=== PATIENT | male | born 1995 | race Caucasian/White ===

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

== ENCOUNTER 2017-01-02 13:51 | Emergency (ER) | payer SELFPAY ==
--- NOTE | 2017-01-02 15:26 | Emergency Department Report ---
Entered by SINCERE RAMIREZ, acting as scribe for ADENIKE MICHELLE NP. Chief Complaint: Extremity Injury, Upper Stated Complaint: LEFT ARM PAIN STITCHES Time Seen by Provider: 01/02/17 15:15 - HPI History of Present Illness: 21 y/o male presents with left arm injury wound recheck that was seen and given stitches 4 days ago. He reports wound occurred after being cut on glass attempting to fix his garage door. Pt notes current dressing was placed last night and reports excessive bleeding. - ROS Review of Systems: + minimal bleeding +left arm pain - Exam Physical Exam: SKIN: 1cm laceration noted to the left arm, minimal bleeding. 1cm laceration noted to left wrist. Stitches previously placed 4 days ago. MSE screening note: Focused history and physical exam performed. Due to findings the following was ordered: ED Disposition for MSE Condition: Stable This documentation as recorded by the scribe,SINCERE RAMIREZ,accurately reflects the service I personally performed and the decisions made by MIGUEL ANGEL lozoya TRACY M , GROUP MANAGER.
[2017-01-02 15:41] VITALS: BP 132/83
--- NOTE | 2017-01-02 19:38 | Emergency Department Report ---
ED Extremity Problem HPI - General Chief complaint: Laceration/Recheck/Suture Stated complaint: LEFT ARM PAIN STITCHES Time Seen by Provider: 01/02/17 15:15 Source: patient, old records reviewed Mode of arrival: Ambulatory Limitations: No Limitations - History of Present Illness Initial comments: PT states he L fa laceration is still bleeding from having stitches on . 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 PT states the pain in his had and wrist is getting better. PT states he is taking his RX PT also states that he is a smoker. MD Complaint: extremity pain -: Sudden, days(s) Location: left, upper extremity -: No fever Severity scale (0 -10): 8 Quality: aching, constant Consistency: constant Improves with: nothing Associated Symptoms: denies other symptoms - Related Data Previous Rx's Medication Instructions Recorded Last Taken Type traMADol [Ultram 50 MG tab] 50 mg PO Q6HR PRN #10 tablet 12/29/16 Unknown Rx Cephalexin [Keflex] 500 mg PO Q6HR 7 Days 01/02/17 Unknown Rx Allergies Allergy/AdvReac Type Severity Reaction Status Date / Time shellfish derived Allergy Angioedema Verified 12/29/16 13:38 ED Review of Systems ROS: Stated complaint: LEFT ARM PAIN STITCHES Other details as noted in HPI Comment: All other systems reviewed and negative Constitutional: denies: chills, fever Gastrointestinal: denies: abdominal pain, nausea, vomiting Musculoskeletal: as per HPI Skin: as per HPI Hematological/Lymphatic: easy bleeding (from sutures ) ED Past Medical Hx - Social History Smoking Status: Current Every Day Smoker Substance Use Type: None - Medications Home Medications: Home Medications Medication Instructions Recorded Confirmed Last Taken Type traMADol [Ultram 50 MG tab] 50 mg PO Q6HR PRN #10 tablet 12/29/16 Unknown Rx Cephalexin [Keflex] 500 mg PO Q6HR 7 Days 01/02/17 Unknown Rx ED Physical Exam - General Limitations: No Limitations General appearance: alert, in no apparent distress - Head Head exam: Present: atraumatic, normocephalic, normal inspection - Eye Eye exam: Present: normal appearance - ENT ENT exam: Present: normal exam, normal external ear exam - Neck Neck exam: Present: normal inspection, full ROM - Respiratory Respiratory exam: Present: normal lung sounds bilaterally. Absent: respiratory distress, chest wall tenderness - Cardiovascular Cardiovascular Exam: Present: regular rate, normal rhythm, normal heart sounds - Extremities Exam Extremities exam: Present: full ROM, tenderness, normal capillary refill - Expanded Upper Extremity Exam Right General: Present: normal inspection Vascular: Present: radial pulse. Absent: vascular compromise Left Elbow exam: Present: normal inspection, full ROM Forearm Wrist exam: Present: tenderness, swelling, laceration (1 cm laceration site with [address] oozing blood between sutures. + localized edema and ecchymosis ), ecchymosis, other (suture site to L wrist, no active bleeding ). Absent: tenderness over anatomical snuff box Hand Wrist exam: Present: tenderness (difuse ). Absent: swelling, laceration, ecchymosis, deformity, dislocation, erythema, subungual hematoma Neuro motor exam: Present: thumb IP flexion intact, thumb adduction intact Vascular: Present: radial pulse. Absent: vascular compromise - Back Exam Back exam: Present: normal inspection, full ROM - Neurological Exam Neurological exam: Present: alert, oriented X3 - Psychiatric Psychiatric exam: Present: normal affect, normal mood - Skin Skin exam: Present: warm, dry. Absent: intact ED Course Vital Signs 01/02/17 15:39 Temperature 98.7 F Pulse Rate 67 Respiratory 18 Rate Blood Pressure 132/83 O2 Sat by Pulse 100 Oximetry - Reevaluation(s) Reevaluation #1: 01/02/17 19:50 No active bleeding at this time. PT is aware that he will need to follow up with [facility]. PT has no questions at this time. PT is aware of plan of care. - Laceration /Wound Repair Left Anterior Arm Wound Location: upper extremity (L FA ) Wound Length (cm): 1 Betadine Prep?: No (skin cleansed with alcohol wipe) Wound Repaired With: Dermabond (placed between two sutures) Sterile Dressing Applied?: Yes (steri strips ) Progress: Pt had a saturated dressing while in triage. When pt was brought back to exam room, the wound was re-evaluated and still oozing blood. skin was cleansed with alcohol wipe. and dermabound applied to the laceration site that was bleeding. dermabound dried and covered with steri-strips. pt tolerated the procedure well and without complications - Pulse Oximetry Interpretation Digit-Finger Initial Pulse Oximetry Readin Actions Taken: none ED Medical Decision Making - Radiology Data Radiology results: report reviewed (from previous visit) - Medical Decision Making PT with bleeding from suture site. PT's sutures were placed four days ago. Wound was actively oozing blood. Dermabond applied and covered with steri- strips. No active bleeding. PT not sure when his last TDAP vaccine was. Will update. PT's hemodynamically stable. PT aware of plan of care and strict return precautions. - Differential Diagnosis laceration, wound dehiscence Critical Care Time: No Critical care attestation.: If time is entered above; I have spent that time in minutes in the direct care of this critically ill patient, excluding procedure time. ED Disposition Clinical Impression: Need for Tdap vaccination Laceration of left forearm Qualifiers: Encounter type: subsequent encounter Qualified Code(s): S51.812D - Laceration without foreign body of left forearm, subsequent encounter Disposition: TO HOME OR SELFCARE Is pt being admited?: No Does the pt Need Aspirin: No Condition: Stable Instructions: Skin Adhesive Care (ED) Additional Instructions: Keep your sutures clean and dry As we discussed, please refrain from smoking as that can lead to poor wound healing. the steristrips and skin glue will start to peel off on their own in the next 3- 5 days. Follow up with [facility] in 3-5 days take all of your antibiotics Return to the ED if you have more pain, swelling, bleeding or if your arm becomes red and feels hot. Prescriptions: Cephalexin [Keflex] 500 mg PO Q6HR 7 Days Referrals: [facility] [Outside] - 3-5 Days MAUDE ALVAREZ MD [Staff Physician] - 3-5 Days PRIMARY CAREMD [Primary Care Provider] - 3-5 Days CHRISTOPHER DELVALLE MD [Staff Physician] - 3-5 Days JANE CABALLERO MD [Staff Physician] - 3-5 Days Forms: Work/School Release Form(ED) Time of Disposition: 20:02
[2017-01-02] MEDS: BOOSTRIX IM ONE (20:15)
[2017-01-02] MEDS: KEFLEX PO ONE (21:15)
== END 2017-01-02 20:30 | disposition home or self-care (01) ==
LOC: ED 13:51
DX: S51.812A Laceration without foreign body of left forearm, initial encounter (principal); F17.200 Nicotine dependence, unspecified, uncomplicated; W45.8XXA Other foreign body or object entering through skin, initial encounter; Y93.9 Activity, unspecified; Y92.9 Unspecified place or not applicable; Y99.9 Unspecified external cause status
CPT/HCPCS: 90471; 90715

== ENCOUNTER 2017-01-11 21:48 | Emergency (ER) | payer SELFPAY ==
[2017-01-12] MEDS ORDERED: TRIPLE ANTIBIOTIC TP ONE (01:22)
--- NOTE | 2017-01-12 01:24 | Emergency Department Report ---
Suture/Staple Removal - [facility] Chief Complaint: Laceration/Recheck/Suture Stated Complaint: SUTURE REMOVAL Time Seen by Provider: 01/12/17 01:07 When Sutures or Enrique Placed: 11-14 Days Ago Wound Location: patient presents for suture removal. left forearm 8 stitches total ED Review of Systems ROS: Stated complaint: SUTURE REMOVAL Other details as noted in HPI Constitutional: denies: chills, fever Eyes: denies: eye pain, eye discharge, vision change ENT: denies: ear pain, throat pain Respiratory: denies: cough, shortness of breath, wheezing Cardiovascular: denies: chest pain, palpitations Endocrine: no symptoms reported Gastrointestinal: denies: abdominal pain, nausea, diarrhea Genitourinary: denies: urgency, dysuria Musculoskeletal: denies: back pain, joint swelling, arthralgia Skin: denies: rash, lesions Neurological: denies: headache, weakness, paresthesias Psychiatric: denies: anxiety, depression Hematological/Lymphatic: denies: easy bleeding, easy bruising ED Past Medical Hx - Past Medical History Previous Medical History?: No - Surgical History Past Surgical History?: No - Social History Smoking Status: Current Every Day Smoker Substance Use Type: Alcohol - Medications Home Medications: Home Medications Medication Instructions Recorded Confirmed Last Taken Type traMADol [Ultram 50 MG tab] 50 mg PO Q6HR PRN #10 tablet 12/29/16 Unknown Rx Cephalexin [Keflex] 500 mg PO Q6HR 7 Days 01/02/17 Unknown Rx Ibuprofen [Motrin] 600 mg PO Q8H PRN #20 tablet 01/12/17 Unknown Rx Neomycn/Baci Zn/Pmyx Bs/Pramox 1 applicatio TP BID #1 oint...g. 01/12/17 Unknown Rx [Triple Antibioti-Pain Rlf Oint] Suture Removal Exam - Exam General: Vital signs noted. No distress. Alert and acting appropriately. Wound site appears clean, no wound dehiscence no signs of cellulitis no pus drainage from area. Appears to have healed normally Wound: No Pathologic Erythema, No Tenderness, No Drainage, No Pus, No Wound Dehiscence Other Systems: All other systems reviewed and are unremarkable. ED Course Vital Signs 01/11/17 23:54 Temperature 98.7 F Pulse Rate 67 Respiratory 20 Rate Blood Pressure 144/89 [Right] O2 Sat by Pulse 99 Oximetry ED Recheck MDM - Differential Diagnosis Suture/Staple Removal - Medical Decision Making A/P: Simple suture removal left forearm 1- sutures placed approximately 12 days ago. Today 8 Prolene sutures removed from left forearm, no wound dehiscence signs of infection 2-triple antibiotic ointment to wound sites 3-Motrin when necessary 4- I advised patient to return if he notices any pus drainage bowel odor or significant erythema or significant pain at site. Patient stated he understood these instructions Critical care attestation.: If time is entered above; I have spent that time in minutes in the direct care of this critically ill patient, excluding procedure time. ED Disposition Clinical Impression: Visit for suture removal Disposition: TO HOME OR SELFCARE Is pt being admited?: No Does the pt Need Aspirin: No Condition: Stable Instructions: Suture Removal (ED) Prescriptions: Ibuprofen [Motrin] 600 mg PO Q8H PRN #20 tablet PRN Reason: Pain Neomycn/Baci Zn/Pmyx Bs/Pramox [Triple Antibioti-Pain Rlf Oint] 1 applicatio TP BID #1 oint...g. Referrals: [facility] [Provider Group] - 3-5 Days Forms: Work/School Release Form(ED) Time of Disposition: 01:22
[2017-01-12 01:25] VITALS: BP 142/89
== END 2017-01-12 01:25 | disposition home or self-care (01) ==
LOC: ED 21:48
DX: Z48.02 Encounter for removal of sutures (principal); F17.200 Nicotine dependence, unspecified, uncomplicated
CPT/HCPCS: A6250